=== PATIENT | male | born 1995 | race Caucasian/White ===

== ENCOUNTER 2017-03-03 20:04 | Emergency (ER) | payer BC ==
[~2017-03-03] VITALS: Ht 175.3 cm; Wt 77.1 kg
[2017-03-03 20:07] VITALS: TEMP 36.7; Ht 175.3 cm; Wt 77.1 kg
[2017-03-03] MEDS ORDERED: OPTIRAY 320 IV PRN (21:30)
[2017-03-03 21:39] LABS: BASO % 0.3 %; BASO ABS # 0.03 K/uL (0-0.2); COMPLETE YES; EOS % 0.2 %; HEMATOCRIT 50.4 % (42-52); IG% 0.3 %; LYMPH % 13.6 %; LYMPH ABS # 1.51 K/uL (1.2-3.4); MEAN CELL VOLUME 95.3 fL (80-100); MEAN CORPUSCULAR HEMOGLOBIN 33.5 pg (25-34); MEAN CORPUSCULAR HGB CONC 35.1 g/dl (32-36); MEAN PLATELET VOLUME 10.6 fL (7.4-10.4); MONO % 7.1 %; NEUT % 78.5 %; PLATELET COUNT 247 K/uL (130-400); RED BLOOD COUNT 5.29 M/uL (4.7-6.1); WHITE BLOOD COUNT 11.08 K/uL (4.8-10.8)
[2017-03-03] MEDS ORDERED: PATIENT'S ALLERGY INFO NEEDS ENTERED STA (21:54)
[2017-03-03 22:00] LABS: BUN/CREATININE RATIO 14.9 (10-20); POTASSIUM 4.2 mmol/L (3.5-5.1)
[2017-03-03 22:05] VITALS: BP 125/67; PULSE 70; O2SAT 100
[2017-03-03 22:27] LABS: CALCIUM 9.4 mg/dl (8.5-10.1)
--- NOTE | 2017-03-03 22:31 | DIAGNOSTIC IMAGING REPORT ---
HEAD CTA HISTORY: Headache. TECHNIQUE: Multiaxial CT images of the head were performed both before and after the intravenous administration of contrast to evaluate the major cerebral vessels. Maximum intensity projection images were also obtained. COMPARISON: None. FINDINGS: There is no mass, hematoma, midline shift, or acute infarct. Visualized intracranial internal carotid arteries, distal vertebral arteries, and basilar artery are widely patent. There is no significant stenosis, occlusion, or aneurysm seen within the bilateral ACAs, MCAs, or press writer. IMPRESSION: No significant stenosis, occlusion, or aneurysm within the [place]. Electronically signed by: Jassi Hughes M.D. 03/03/2017 10:29 PM Dictated Date/Time: 03/03/2017 10:23 PM
--- NOTE | 2017-03-04 | EMERGENCY ROOM VISIT NOTE ---
History Report prepared by Cecilio: Max Trivedi Under the Supervision of: Dr. Mitesh Arango D.O. First contact with patient: 21:14 Chief Complaint: HEADACHE Stated Complaint: HEADACHE WHEN LIFTING HEAVY WEIGHTS OR OTHER ACTIV History of Present Illness The patient is a 21 year old male who presents to the Emergency Room with complaints of an intermittent headache beginning one day prior to arrival. He states his symptoms worsen with lifting and physical activity. The patient notes his episodes last 30-45 minutes, in which, it is intense for 10 minutes. He notes he was at [facility] prior to arrival, and they referred him for a CT for a possible aneurysm. The patient denies numbness and weakness. He denies any medical problems or previous surgeries. Pt denies change in vision, fevers, chest pain, shortness of breath, nausea, vomiting, diarrhea, pain with urination , and melena. 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 A total of 10 systems reviewed and were otherwise negative. Past Medical & Surgical Medical Problems: (1) No pertinent past medical history Family History Patient reports no known family medical history. Social History Smoking Status: Never Smoker Marital Status: single Occupation Status: [employer] student Current/Historical Medications No Active Prescriptions or Reported Meds Allergies Coded Allergies: No Known Allergies (Unverified , 03/03/17) Physical Exam Vital Signs Date Time Temp Pulse Resp B/P Pulse Ox O2 Delivery O2 Flow Rate FiO2 03/03/17 22:05 70 16 125/67 100 Room Air 03/03/17 20:07 36.7 75 18 141/85 99 Room Air Physical Exam GENERAL: sitting up in bed, alert, well appearing, well nourished, no distress, non-toxic EYE EXAM: normal conjunctiva, 4mm PERRL OROPHARYNX: no exudate, no erythema, lips, buccal mucosa, and tongue normal and mucous membranes are moist NECK: supple, no nuchal rigidity, no adenopathy, non-tender LUNGS: Clear to auscultation. Normal chest wall mechanics HEART: no murmurs, S1 normal and S2 normal ABDOMEN: abdomen soft, non-tender, normo-active bowel sounds, no masses, no rebound or guarding. BACK: Back is symmetrical on inspection and there is no deformity, no midline tenderness, no CVA tenderness. SKIN: no rashes and no bruising UPPER EXTREMITIES: upper extremities are grossly normal. LOWER EXTREMITIES: No pitting edema. NEURO EXAM: Normal sensorium, cranial nerves II-XII intact, normal speech, no weakness of arms, no weakness of legs. No drift. Finger to nose intact. Gross sensation intact. Medical Decision & Procedures ER Provider Diagnostic Interpretation: CT:Per my review, radiologist interpretation. HEAD CTA HISTORY: Headache. TECHNIQUE: Multiaxial CT images of the head were performed both before and after the intravenous administration of contrast to evaluate the major cerebral vessels. Maximum intensity projection images were also obtained. COMPARISON: None. FINDINGS: There is no mass, hematoma, midline shift, or acute infarct. Visualized intracranial internal carotid arteries, distal vertebral arteries, and basilar artery are widely patent. There is no significant stenosis, occlusion, or aneurysm seen within the bilateral ACAs, MCAs, or lace stripper. IMPRESSION: No significant stenosis, occlusion, or aneurysm within the [place]. Electronically signed by: Jassi Hughes M.D. 03/03/2017 10:29 PM Laboratory Results 03/03/17 21:30 Red Blood Count 5.29, Mean Corpuscular Volume 95.3, Mean Corpuscular Hemoglobin 33.5, Mean Corpuscular Hemoglobin Concent 35.1, Mean Platelet Volume 10.6, Neutrophils (%) (Auto) 78.5, Lymphocytes (%) (Auto) 13.6, Monocytes (%) (Auto) 7.1, Eosinophils (%) (Auto) 0.2, Basophils (%) (Auto) 0.3, Neutrophils # (Auto) 8.70, Lymphocytes # (Auto) 1.51, Monocytes # (Auto) 0.79, Eosinophils # (Auto) 0.02, Basophils # (Auto) 0.03 03/03/17 21:30 Test 03/03/17 21:30 White Blood Count 11.08 K/uL (4.8-10.8) Red Blood Count 5.29 M/uL (4.7-6.1) Hemoglobin 17.7 g/dL (14.0-18.0) Hematocrit 50.4 % (42-52) Mean Corpuscular Volume 95.3 fL (80-100) Mean Corpuscular Hemoglobin 33.5 pg (25-34) Mean Corpuscular Hemoglobin Concent 35.1 g/dl (32-36) Platelet Count 247 K/uL (130-400) Mean Platelet Volume 10.6 fL (7.4-10.4) Neutrophils (%) (Auto) 78.5 % Lymphocytes (%) (Auto) 13.6 % Monocytes (%) (Auto) 7.1 % Eosinophils (%) (Auto) 0.2 % Basophils (%) (Auto) 0.3 % Neutrophils # (Auto) 8.70 K/uL (1.4-6.5) Lymphocytes # (Auto) 1.51 K/uL (1.2-3.4) Monocytes # (Auto) 0.79 K/uL (0.11-0.59) Eosinophils # (Auto) 0.02 K/uL (0-0.5) Basophils # (Auto) 0.03 K/uL (0-0.2) RDW Standard Deviation 46.5 fL (36.4-46.3) RDW Coefficient of Variation 13.3 % (11.5-14.5) Immature Granulocyte % (Auto) 0.3 % Immature Granulocyte # (Auto) 0.03 K/uL (0.00-0.02) Anion Gap 6.0 mmol/L (3-11) Est Creatinine Clear Calc Drug Dose 115.9 ml/min Estimated GFR () 123.3 Estimated GFR (Non- 106.4 BUN/Creatinine Ratio 14.9 (10-20) Calcium Level 9.4 mg/dl (8.5-10.1) Laboratory results per my review. Medications Administered Medications (Trade) Dose Ordered Sig/Tiara Route Start Time Stop Time Status Last Admin Dose Admin Miscellaneous Information (Patient'S Allergy Info Needs Entered) 1 ea ONE STAT N/A 03/03/17 21:54 03/03/17 21:55 DC 03/03/17 21:56 1 EA ED Course ED COURSE: Vital signs were reviewed and showed normal vitals. The patients medical record was reviewed The above diagnostic studies were performed and reviewed. ED treatments and interventions as stated above. 2118: The patient was evaluated in room C5. A complete history and physical examination was performed. 2234: Upon reevaluation, the patient is doing well.I discussed my findings with the patient and he understands and agrees with the treatment plan. Based on the patients age, coexisting illnesses, exam and lab findings the decision to treat as an outpatient was made. The patient remained stable while under my care. The patient appeared well at the time of discharge. Medical Decision Differential Diagnosis includes but is not limited to headache, tension headache , cluster headache, migraine, subarachnoid hemorrhage, meningitis, mass, central venous thrombus, concussion, trauma and epidural/subdural hemorrhage. Patient is a 21-year-old male who presents the ER for posterior headache which starts with lifting or sex. He has no other complaints. He is completely neurologically intact. CBC along with BMP was unremarkable. CTA of the head was performed and was unremarkable. No signs of aneurysm. Patient is no complaints at this time. Vitals are unremarkable. I favor that this is likely posterior occipital headache in nature. He has no ischemic risk factors. Patient was updated bedside discharged to follow-up with [facility]. Discussed with Pt concerning signs and symptoms to watch out for. Pt was instructed to follow up with their PCP and discussed with the patient their option to return to the ED at anytime for persistent or worsening symptoms. The appropriate anticipatory guidance and out-patient management, including indications for return to the emergency department, were explained at length to the patient and understood. Impression Primary Impression: Headache Scribe Attestation The scribe's documentation has been prepared under my direction and personally reviewed by me in its entirety. I confirm that the note above accurately reflects all work, treatment, procedures, and medical decision making performed by me. Departure Information Dispostion Home / Self-Care Prescriptions No Active Prescriptions or Reported Meds Forms HOME CARE DOCUMENTATION FORM, IMPORTANT VISIT INFORMATION Patient Instructions ED Headache Cluster, Headache Pain, My [facility] Additional Instructions Please follow up with your primary care doctor or if you are a student [employer] with in the next 24 hours. Any worsening of your symptoms, please return to the ED immediately. This includes any weakness of your arms or legs, change in vision, worsening headaches, or any other concerning signs or symptoms from your standpoint. Problem Qualifiers Primary Impression: Headache Headache type: unspecified Headache chronicity pattern: acute headache Intractability: not intractable Qualified Codes: R51 - Headache
== END 2017-03-03 22:40 | disposition home or self-care (01) ==
LOC: C.EDB 20:06 → C.EDC 22:40
DX: R51 Headache (principal)